=== PATIENT | female | born 1965 | race Caucasian/White ===

== ENCOUNTER 2017-08-22 05:43 | Emergency (ER) | payer OTHER ==
[2017-08-22] MEDS ORDERED: ONDANSETRON 4 MG/2 ML VIAL IVP ONE (05:54)
[2017-08-22] MEDS ORDERED: NS 1,000 ML IV ONE (05:55)
[2017-08-22 06:00] VITALS: TEMP 98.2
[2017-08-22 06:27] LABS: PLATELET COUNT 256 10^3/uL (150-400)
--- NOTE | 2017-08-22 06:33 | EDPHY ---
H & P Smoking Status: Never smoked Time Seen by Provider: 08/22/17 05:56 HPI/ROS: Chief complaint dizziness. HPI: Patient presents this morning with complaints of dizziness, headache, nausea. She states that she has had mild headache and occasional nausea since July. The dizziness seems to have come about over the last 3-4 days. She states that she feels the symptoms most in the morning. Over the last week she has had symptoms worse in the a.m. But generally have not cleared up completely. Today she felt that she"might pass out"she does describe spinning but not vertiginous in nature. She denies vomiting, diarrhea. She has had no recent URI, fever, cough. She denies chest pain. She did wonder about carbon monoxide poisoning but does have a working carbon monoxide monitor at her home and she tested. The headaches that have been present for approximately a month or mild general in location and intermittent. She also says over the last 2 months that she has been exercising less than normal. She used exercised for 5 times a day with stationary bicycle and weights. Over the last month she has only been exercising 1 to 3 times a week. She denies any shortness of breath or dyspnea on exertion but feels that she just does not have as much energy as normal. Medical history diagnosed with breast cancer 4 years ago. Was treated and had an MRI last May at [facility] which showed no recurrence. Social history patient lives alone. Recently visited by her son who is going to school in [place]. Patient does not smoke, does not use alcohol or drugs. Patient also told me that in June her ex been her [id number]. Contents of 10 point review of systems otherwise negative except for what is mentioned in HPI. General Appearance: Alert, no distress. Eyes: Pupils equal and round no pallor or injection. ENT, Mouth: Mucous membranes moist. Respiratory: There are no retractions, lungs are clear to auscultation. Cardiovascular: Regular rate and rhythm. Gastrointestinal: Abdomen is soft and nontender, no masses, bowel sounds normal. Neurological: Cranial nerves intact, normal strength in flexion and extension all 4 extremities, normal sensation Skin: Warm and dry, no rashes. Musculoskeletal: Neck is supple nontender. Extremities are symmetrical, full range of motion. Psychiatric: Patient is oriented X 3, there is no agitation. (Renee Oliveros) Constitutional: Initial Vital Signs Temperature (C) 36.8 C 08/22/17 05:56 Heart Rate 91 08/22/17 05:56 Respiratory Rate 16 08/22/17 05:56 Blood Pressure 129/82 H 08/22/17 05:56 O2 Sat (%) 97 08/22/17 05:56 O2 Delivery Mode Room Air Allergies/Adverse Reactions: No Known Allergies Allergy (Unverified 08/22/17 06:00) Home Medications: Medication Instructions Recorded Natural Thyroid 08/22/17 Medical Decision Making ED Course/Re-evaluation: Patient doing fine on re-evaluation. Did discuss with her the possible consideration of depression. This is when she told me about her recent events where her ex her ex [id number]. She did get tearful. (Renee Oliveros) I assumed care from Dr. She is pending results of chemistry test. Labs are all within normal limits. Patient's vital signs remained stable and she was in normal sinus rhythm on the cardiac monitor technician. I discussed the normal results with the patient. I am encouraging her to follow up with her primary care physician for further evaluation for symptoms persist. Patient states she has also emailed to make an appointment with therapist and I have encouraged her to keep this appointment as well. (Concepción Smalls) Differential Diagnosis: Differential diagnosis includes but is not limited to migraine, vertigo, dehydration, electrolyte abnormality, hypothyroid. At the time of my departure from the emergency department laboratory evaluation still pending. Discussed this patient in detail with Dr. Concepción Smalls. (Renee Oliveros) - Data Points Laboratory Results: Laboratory Results 08/22/17 05:55 08/22/17 08/22/17 08/22/17 08:15 05:55 05:55 WBC 6.90 10^3/uL 10^3/uL (3.80-9.50) RBC 4.54 10^6/uL 10^6/uL (4.18-5.33) Hgb 13.5 g/dL g/dL (12.6-16.3) POC Hgb 12.6 gm/dL gm/dL (12.6-16.3) Hct 40.7 % % (38.0-47.0) POC Hct 37 % L % (38-47) MCV 89.6 fL fL (81.5-99.8) MCH 29.7 pg pg (27.9-34.1) MCHC 33.2 g/dL g/dL (32.4-36.7) RDW 13.3 % % (11.5-15.2) Plt Count 256 10^3/uL 10^3/uL (150-400) MPV 9.8 fL fL (8.7-11.7) Neut % (Auto) 58.4 % % (39.3-74.2) Lymph % (Auto) 30.3 % % (15.0-45.0) Brewster % (Auto) 6.2 % % (4.5-13.0) Eos % (Auto) 3.8 % % (0.6-7.6) Baso % (Auto) 0.9 % % (0.3-1.7) Nucleat RBC Rel Count 0.0 % % (0.0-0.2) Absolute Neuts (auto) 4.03 10^3/uL 10^3/uL (1.70-6.50) Absolute Lymphs (auto) 2.09 10^3/uL 10^3/uL (1.00-3.00) Absolute Monos (auto) 0.43 10^3/uL 10^3/uL (0.30-0.80) Absolute Eos (auto) 0.26 10^3/uL 10^3/uL (0.03-0.40) Absolute Basos (auto) 0.06 10^3/uL 10^3/uL (0.02-0.10) Absolute Nucleated RBC 0.00 10^3/uL 10^3/uL (0-0.01) Immature Gran % 0.4 % % (0.0-1.1) Immature Gran # 0.03 10^3/uL 10^3/uL (0.00-0.10) POC Sodium 140 mEq/L mEq/L (135-145) POC Potassium 4.1 mEq/L mEq/L (3.3-5.0) POC Chloride 103 mEq/L mEq/L (97-110) POC BUN < 3 mg/dL L mg/dL (7-23) POC Creatinine 0.7 mg/dL mg/dL (0.6-1.0) POC Glucose 116 mg/dL H mg/dL (70-100) TSH 0.682 uIU/mL uIU/mL (0.465-4.680) Medications Given: Discontinued Medications Sodium Chloride (Ns) 1,000 mls @ 0 mls/hr IV EDNOW ONE; Wide Open PRN Reason: Protocol Stop: 08/22/17 05:56 Last Admin: 08/22/17 06:10 Dose: 1,000 mls Ondansetron HCl (Zofran) 4 mg IVP EDNOW ONE Stop: 08/22/17 05:55 Last Admin: 08/22/17 06:11 Dose: 4 mg Point of Care Test Results: 08/22/17 08:15 POC Sodium 140 POC Potassium 4.1 POC Chloride 103 POC BUN < 3 L POC Creatinine 0.7 POC Glucose 116 H Departure - Departure Disposition: Home, Routine, Self-Care Clinical Impression: Dizziness Condition: Good Instructions: Depression (ED), Dizziness (ED) Additional Instructions: You were seen by Dr. Chrissy neil and Dr. Concepción Smalls today. We have found no significant emergency cause of your dizziness. Your blood work is all normal, including her thyroid. Please follow-up with your primary care physician within 2-3 weeks and I encourage you to keep your appointment with your therapist. Return for any worsening or new concerns. Referrals: NONE *PRIMARY CARE P,. [Unknown] - As per Instructions
[2017-08-22 06:55] VITALS: RESP 18
[2017-08-22 08:33] VITALS: BP 125/68; PULSE 78; O2SAT 92
== END 2017-08-22 08:38 | disposition home or self-care (01) ==
LOC: CED 05:43
DX: R42 Dizziness and giddiness (principal); E86.9 Volume depletion, unspecified; Z85.3 Personal history of malignant neoplasm of breast
CPT/HCPCS: 82947-QW; 84443-PO; 85025-PO; 96374; J2405